=== PATIENT | male | born 1945 | race Caucasian/White ===

== ENCOUNTER 2017-01-07 23:07 | Emergency (ER) | payer SELFPAY ==
[2017-01-07 23:27] VITALS: BP 143/78
== END 2017-01-07 23:50 | disposition home or self-care (01) ==
LOC: ER 23:07
DX: T14.8 Other injury of unspecified body region (principal)

== ENCOUNTER 2017-06-01 08:56 | Emergency (ER) | payer MEDICARE, OTHER ==
--- NOTE | 2017-06-01 11:53 | ERNOTE ---
Abdominal HPI - Narrative Date of Service: 06/01/17 - General Chief Complaint: Constipation Time Seen by Provider: 06/01/17 10:34 Source: patient Exam Limitations: no limitations - Immun/Allergies/Home Medications Immunizatons: IMMUNIZATION HX Immunizations Up to Date Yes History of Influenza Vaccine Yes Hx Pneumococcal Vaccination No Allergies/Adverse Reactions: Allergies No Known Allergies Allergy (Unverified 06/01/17 09:14) Home Medications: HOME MEDICATIONS Amiodarone HCl [Cordarone] 200 mg PO DAILY 06/01/17 [Last Taken Unknown] Insulin Glargine,Hum.rec.anlog [Lantus] 10 units SC HS 06/01/17 [Last Taken Unknown] Metoprolol Succinate 25 mg PO DAILY 06/01/17 [Last Taken Unknown] Polyethylene Glycol 3350 [Miralax] 17 gm PO PRN PRN 06/01/17 [Last Taken Unknown ] - History of Present Illness Narrative: Pt. comes in with c/o constipation and rectal pressure for five days. Pt. enies any abdominal pain , NVD, fever, SOB, CP, alleviating or aggravating factors despite using severeal doses of miralax yesterday. Timing: getting worse Quality: moderate, fullness Activities at Onset: none Modifying Factors - (Improves): Present: other - nothing Modifying Factors - (Worsens): Present: other - nothing Associated Symptoms: Absent: diarrhea-gross blood, diarrhea-mucous, nausea, vomiting, loss of appetite Prior Abdominal Problems: Present: none Prior Treatment: Present: other - miralax. Absent: recently seen, treated by physician, recently hospitalized, currently on antibiotics Review of Systems - Review of Systems Constitutional: Present: no symptoms reported. Absent: fever, chills, weakness , fatigue, malaise EYE: Present: no symptoms reported ENT: Present: no symptoms reported Respiratory: Present: no symptoms reported. Absent: shortness of breath, cough , wheezing Gastrointestinal/Abdominal: Present: constipation. Absent: nausea, vomiting, diarrhea, abdominal pain, eating less, drinking less Genitourinary: Present: no symptoms reported. Absent: frequency, decreased urinary output Musculoskeletal: Present: no symptoms reported. Absent: back pain, joint pain Skin: Present: no symptoms reported. Absent: rash, change in hair/nails Neurological: Present: no symptoms reported. Absent: headache, dizziness/light- headedness, numbness, tingling All Other Systems: All systems neg except as marked - Patient's Past Medical History Patient History - Medical: Diabetes Type 1 Patient History - Cardiac/Respiratory: Hyperlipidemia Patient History - Cancer: Esophageal, Melanoma Patient History - Surgical Procedures: Cancer Surgery Patient History - Other: None - Social History Living Situations: home Abuse History: No History of abuse Psych History: No pertinent hx Smoking Status: Former smoker Alcohol Use: rarely Drug Use: none - Immunizations Immunizations Up to Date: Yes Hx Pneumococcal Vaccination: No History of Influenza Vaccine: Yes Physical Exam - Physical Exam General Appearance: Present: wd/wn, alert, no apparent distress Head Exam: Present: normal inspection, no evidence of injury Eye Exam: Normal inspection: bilateral Ears, Nose, Throat: Present: normal ENT inspection, normal pharynx. Absent: abnormal TM (R), abnormal TM (L), nasal congestion, pharyngeal erythema Neck: Present: normal inspection, nontender, supple, full range of motion. Absent: lymphadenopathy (R), lymphadenopathy (L) Respiratory: Present: no respiratory distress, normal breath sounds, no accessory muscle use, chest nontender, lungs clear. Absent: crackles, rales, rhonchi, wheezing Cardiovascular/Chest: Present: regular rate, rhythm, no murmur, normal peripheral pulses Gastrointestinal/Abdominal: Present: normal bowel sounds, nontender, soft, no organomegaly, distended Back Exam: Present: normal inspection Extremity Exam: Present: normal inspection Neurological Exam: Present: alert, oriented, normal mood/affect, no motor/ sensory deficits Skin Exam: Present: normal color, warm/dry. Absent: pallor, skin rash ED Progress - Vital Signs Patient's Vital Signs:: I have reviewed the patient's vital signs. Vital Signs: Vital Signs 06/01/17 09:09 Temperature 35.6 C L Pulse Rate 76 Respiratory 15 Rate Blood Pressure 122/64 O2 Sat by Pulse 96 Oximetry - X-Ray X-Ray #1 X-Ray: abdomen Interpretation: Reviewed by me X-ray Comments: severe stool retention and fecal impaction - Progress/Reassessment Chief Complaint: Constipation Progress:: Improved Progress Note-Subjective: 06/01/17 11:48 Large BM after enema Departure Clinical Impression: Constipation Qualifiers: Constipation type: slow transit constipation Qualified Code(s): K59.01 - Slow transit constipation - Departure Disposition: Home self-care Condition: Good Instructions: Constipation, Adult, [id number] Additional Instructions: Please increase fluid intake and increase fiber intake. Follow up with primary provider as needed.
[2017-06-01 11:59] VITALS: BP 117/70
== END 2017-06-01 11:58 | disposition home or self-care (01) ==
LOC: ER 08:56
DX: K59.01 Slow transit constipation (principal); E10.9 Type 1 diabetes mellitus without complications; Z79.4 Long term (current) use of insulin; E78.5 Hyperlipidemia, unspecified; Z85.01 Personal history of malignant neoplasm of esophagus; Z85.820 Personal history of malignant melanoma of skin; Z87.891 Personal history of nicotine dependence